=== PATIENT | female | born 1990 | race Caucasian/White ===

== ENCOUNTER 2020-02-12 21:24 | Emergency (ER) | payer BC, OTHER ==
[2020-02-12 22:03] VITALS: TEMP 99.1; BMI 18.4
[2020-02-12] MEDS ORDERED: NAPROXEN 500 MG TABLET ONE (23:51)
[2020-02-13] MEDS ORDERED: NAPROXEN 500 MG TABLET PO ONE (00:03)
--- NOTE | 2020-02-13 00:14 | PDOC ---
Documentation entered by Palma Jones SCRIBE, acting as scribe for Maggy Márquez MD. Maggy Márquez MD: This documentation has been prepared by the yulisaibeRobert Lincy, SCRIBE, under my direction and personally reviewed by me in its entirety. I confirm that the documentation accurately reflects all work, treatment, procedures, and medical decision making performed by me. History of Present Illness - General Chief Complaint: Shortness of Breath Stated Complaint: SHORTNESS OF BREATH FATIGUE WEAKNESS X 1.5 YEARS Time Seen by Provider: 02/12/20 21:39 - History of Present Illness Initial Comments: This 29-year-old woman presents with few hour history of anterior chest pain on deep breathing and tenderness to the same area of her chest wall. Past medical history notable for year and a half of intermittent shortness of breath, fatigue and muscle weakness. She is currently undergoing work-up for myasthenia gravis (by interior assemblies developer prover) and multiple sclerosis (by neurologist). She currently denies acute shortness of breath or muscle weakness. Although low-grade (99.1 F) fever was noted on presentation here, she has no history of recent fever or chills. She has no cough or lower extremity edema/pain. No known allergies No current daily medications Non-smoker; no daily alcohol or recreational drug use Past History - Medical History Allergies/Adverse Reactions: Allergies Allergy/AdvReac Type Severity Reaction Status Date / Time No Known Allergies Allergy Verified 02/12/20 22:03 Review of Systems - Review of Systems Able to Perform ROS?: Yes Comments:: 12 point review of systems is negative except for what is noted in the history of present illness *Physical Exam - Physical Exam GENERAL: Adult female, alert and oriented x3, no acute distress; pulse oximetry 100% on room air; respiratory rate 18/min,T 99.1 F HEAD: Normal with no signs of trauma. EYES: PERRLA, EOMI, sclera anicteric, conjunctiva clear. ENT: Ears normal, nares patent, oropharynx clear without exudates. Moist mucous membranes. NECK: Normal range of motion, supple without lymphadenopathy, JVD, or masses. LUNGS: Breath sounds equal, clear to auscultation bilaterally. No wheezes, and no crackles. Mild tenderness to palpation lower sternum HEART:Regular rate and rhythm, normal S1 and S2 without murmur, rub or gallop. EXTREMITIES: Normal range of motion, no edema. No clubbing or cyanosis. No erythema, or tenderness. NEUROLOGICAL: Cranial nerves II through XII grossly intact. Normal speech. No focal neurological deficits. SKIN: Warm, Dry, normal turgor, no rashes or lesions noted. Twelve-lead electrocardiogram performed: Normal sinus rhythm 66 bpm; axis, waveforms and intervals are all normal; no evidence of acute ST or T wave abnormalities. No evidence of acute cardiac arrhythmia. Chest x-ray (PA and lateral) performed and interpreted by Dr. Lawrence of the radiology staff: No acute pathology evident Medical Decision Making - Medical Decision Making As noted above, is 29-year-old woman with a long (year and a half) history of intermittent shortness of breath and chest pain as well as muscle weakness presents with 1 day history of mild pain on deep breathing and anterior chest wall tenderness. She currently does not have any muscle weakness or shortness of breath. Exam as noted above with clear lungs and excellent oxygenation. She has mild chest wall tenderness on exam. EKG and chest x-ray are normal. No indications of hypoxia or acute pulmonary process. The patient has no risk factors for thromboembolic process. Exam most consistent with mild chest wall inflammation such as costochondritis or mild acute pleuritis. Patient given naproxen 500 mg by mouth Patient will be discharged with follow-up with her doctors for further work-up of her chronic shortness of breath/chest pain/muscle weakness. If she has any worsening of her current symptoms, she should return to the emergency room. Meanwhile, she can take OTC ibuprofen/naproxen/acetaminophen as needed Discharge - Discharge Information Problems reviewed: Yes Clinical Impression/Diagnosis: Acute costochondritis Condition: Stable Disposition: HOME - Follow up/Referral - Patient Discharge Instructions Patient Printed Discharge Instructions: DI for Costochondritis Additional Instructions: Rest; drink plenty of fluids Motrin/Aleve as needed for pain; take with food Return if you have persistent short of breath, high fever, cough Follow-up with your doctors as previously scheduled - Post Discharge Activity
[2020-02-13 00:27] VITALS: BP 118/78; PULSE 89
--- NOTE | 2020-02-13 12:07 | EKG ---
Test Reason : Blood Pressure : / mmHG Vent. Rate : 066 BPM Atrial Rate : 066 BPM P-R Int : 154 ms QRS Dur : 074 ms QT Int : 406 ms P-R-T Axes : 050 052 035 degrees QTc Int : 425 ms NORMAL SINUS RHYTHM NORMAL ECG NO PREVIOUS ECGS AVAILABLE Confirmed by MD Chaz, Regan ([id number]) on 02/13/2020 12:06:25 PM Referred By: Confirmed By:Regan Ware MD
== END 2020-02-13 00:33 | disposition home or self-care (01) ==
LOC: FER 21:24
DX: M94.0 Chondrocostal junction syndrome [Tietze] (principal)
CPT/HCPCS: 71046-TC-FY; 93005; 99284-25

== ENCOUNTER 2021-02-24 11:39 | Emergency (ER) | payer BC, OTHER ==
[2021-02-24 12:06] VITALS: TEMP 98.8; BMI 19.8
[2021-02-24] MEDS ORDERED: SODIUM CHLORIDE 1,000 ML IV STA (12:43)
[2021-02-24] MEDS ORDERED: METOCLOPRAMIDE HCL INJECTION 10 MG/2 ML VIAL IVPB ONE (12:43)
[2021-02-24] MEDS ORDERED: METOCLOPRAMIDE HCL INJECTION 10 MG/2 ML VIAL ONE (13:06)
[2021-02-24 14:11] LABS: BASO % 1.2 % (0-2.0); EOS % 3.5 % (0-4.5); HEMATOCRIT 39.9 % (32.4-45.2); HEMOGLOBIN 13.2 GM/dL (10.7-15.3); MCH 29.4 pg (25.7-33.7); MCHC 33.1 g/dl (32.0-36.0); MEAN CELL VOLUME 88.8 fl (80-96); MEAN PLT VOLUME 10.2 fl (7.5-11.1); MONO % 9.9 % (3.8-10.2); NEUT % 39.4 % (42.8-82.8); PLATELET COUNT 121 10^3/uL (134-434); RDW 13.2 % (11.6-15.6); WHITE BLOOD COUNT 3.1 K/mm3 (4.0-10.0)
[2021-02-24 14:24] LABS: CALCIUM 8.8 mg/dL (8.5-10.1)
[2021-02-24 14:25] LABS: BLOOD UREA NITROGEN 9.3 mg/dL (7-18)
[2021-02-24 14:28] LABS: CREATININE 0.7 mg/dL (0.55-1.3)
[2021-02-24 14:29] LABS: BILIRUBIN,TOTAL 0.3 mg/dL (0.2-1); TOT PROT 7.7 g/dl (6.4-8.2)
[2021-02-24] MEDS ORDERED: KETOROLAC TROMETHAMINE 15 MG/ML VIAL IVPUSH ONE (15:08)
[2021-02-24] MEDS ORDERED: KETOROLAC TROMETHAMINE 15 MG/ML VIAL ONE (15:36)
[2021-02-24 17:17] VITALS: BP 108/67; PULSE 70
[2021-02-24] MEDS ORDERED: TETRACAINE 0.5% HCL 0.6ML DROPPER.BOTTLE OD ONE (17:23)
[2021-02-24] MEDS ORDERED: FLUORESCEIN NA 1 EA STRIP OD ONE (17:23)
[2021-02-24] MEDS ORDERED: FLUORESCEIN NA 1 EA STRIP ONE (17:23)
[2021-02-24] MEDS ORDERED: TETRACAINE 0.5% OPHTH SOLN 2 ML BOTTLE ONE (17:23)
== END 2021-02-24 17:30 | disposition home or self-care (01) ==
LOC: JER 11:39
PROC: 3E033GC Introduction of Other Therapeutic Substance into Peripheral Vein, Percutaneous Approach (ICD-10-PCS; principal; 2021-02-24)
PROC: 3E0333Z Introduction of Anti-inflammatory into Peripheral Vein, Percutaneous Approach (ICD-10-PCS; 2021-02-24)
PROC: 3E033GC Introduction of Other Therapeutic Substance into Peripheral Vein, Percutaneous Approach (ICD-10-PCS; 2021-02-24)
DX: B02.9 Zoster without complications (principal)
CPT/HCPCS: 36415; 70450-TC; 80053; 84703; 85025; 99284-25